=== PATIENT | female | born 1975 | race Caucasian/White ===

== ENCOUNTER → 2022-06-05 14:07 | Outpatient (BNVA) | payer MEDICAID, SELFPAY | PROVIDERS: Family Provider Family Medicine; Visit Provider Podiatrist Foot & Ankle Surgery | DX: M20.11 Hallux valgus (acquired), right foot (principal); M20.41 Other hammer toe(s) (acquired), right foot | CPT/HCPCS: 73630; 99203 ==

== ENCOUNTER 2023-02-08 05:40 | Day surgery (SDC) | payer MEDICAID, SELFPAY ==
[2023-02-08] VITALS (10 sets, daily range): BP systolic 137–156; BP diastolic 87–106; PULSE 79–92; RESP 13–19; TEMP 36.2–36.7; O2SAT 95–100
--- NOTE | 2023-02-08 | XR_ITS ---
WS: [id number] Right foot, C-arm fluoroscopy views, 02/08/2023 Clinical Data: buniectomy lapidus Comparison: None. Findings: Dr. Montemayor performed a fusion of the base of the right first metatarsal and first cuneiform with 2 sepa rate plates and multiple screws. XR/XR foot RT 2V [id number] Impression: Arthrodesis of right first metatarsal and first cuneiform.
[2023-02-08] MEDS: gabapentin 300 mg Capsule PO (06:31)
--- NOTE | 2023-02-08 06:44 | P.HPUD_ITS ---
Surgery/Procedure H&P Update DATE OF PROCEDURE: February 08, 2023 DATE H&P PERFORMED: 01/17/23 CHANGES TO PREVIOUS DOCUMENTATION: No changes PREOP DIAGNOSIS: Right foot hallux valgus PLANNED PROCEDURE: Operation Date: 02/08/23 07:00 Proposed Procedures p Bunionectomy Lapidus(Right) - Francisco Montemayor DPM s Right foot bunionectomy CPT 36446, right proximal phalanx osteotomy CPT 77620- 59, ?M21.611(Right) - Francisco Montemayor DPM
--- NOTE | 2023-02-08 06:48 | P.ANESASSM_ITS ---
Pre-Anesthetic Assessment Height/Weight: Height 1.65 m Weight 59.874 kg Temp Pulse Resp BP Pulse Ox O2 Del Method 97.8 F 86 16 139/106 100 Room Air 02/08/23 06:04 02/08/23 06:04 02/08/23 06:04 02/08/23 06:04 02/08/23 06:04 02/08/23 06:04 Preop Diagnosis: Right foot hallux valgus Operation Date: 02/08/23 07:00 Proposed Procedures p Bunionectomy Lapidus(Right) - Francisco Montemayor DPM s Right foot bunionectomy CPT 27748, right proximal phalanx osteotomy CPT 28359- 59, ?M21.611(Right) - Francisco Montemayor DPM Familial anesthetic complications: None Was Beta Ed taken within 24 hours: N/A Was Clonidine taken within 24 hours: N/A Last intake: Intake Last Liquid Date 02/07/23 Last Liquid Time 20:00 Last Solid Date 02/07/23 Last Solid Time 20:00 Social Tobacco and No alcohol Exam alert, oriented x 3, clear to auscultation bilaterally and regular rate & rhythm Airway Mallampati: Class II Dentition: chipped History/ROS No significant complaints Anesthetic Plan ASA status: 2 Anesthesia: General Risk of > 500 ml blood loss (7ml/kg in children): No Medications/Allergies Home Medications Medication Instructions Recorded Confirmed Last Taken Type No Known Home Medications 06/05/22 02/07/23 Unknown History hydrocodone 5 mg-acetaminophen 325 1 tab PO Q6H PRN pain #28 tabs 02/08/23 Unknown Rx mg tablet Allergies Allergy/AdvReac Type Severity Reaction Status Date / Time No Known Allergies Allergy Verified 02/07/23 14:02 PFSH Anesthesia Family History Son Cancer thyroid Grandmother Cancer breast Social History Smoking and tobacco status: current every day smoker cigarettes Packs smoked per day: 1 Years cigarettes smoked: 20 Female Reproductive History Date of last menstrual period: 02/01/23 Data Anesthesia Cardiac Studies: No Data to Display
--- NOTE | 2023-02-08 06:49 | P.ANESASSM_ITS ---
Pre-Anesthetic Assessment Height/Weight: Height 1.65 m Weight 59.874 kg Temp Pulse Resp BP Pulse Ox O2 Del Method 97.8 F 86 16 139/106 100 Room Air 02/08/23 06:04 02/08/23 06:04 02/08/23 06:04 02/08/23 06:04 02/08/23 06:04 02/08/23 06:04 Preop Diagnosis: Right foot hallux valgus Operation Date: 02/08/23 07:00 Proposed Procedures p Bunionectomy Lapidus(Right) - Francisco Montemayor DPM s Right foot bunionectomy CPT 15821, right proximal phalanx osteotomy CPT 33594- 58, ?M21.611(Right) - Francisco Montemayor DPM Familial anesthetic complications: none Was Beta Ed taken within 24 hours: N/A Was Clonidine taken within 24 hours: N/A Last intake: Intake Last Liquid Date 02/07/23 Last Liquid Time 20:00 Last Solid Date 02/07/23 Last Solid Time 20:00 Social Tobacco and No alcohol Exam alert, oriented x 3, clear to auscultation bilaterally and regular rate & rhythm Airway Mallampati: Class II Dentition: chipped History/ROS No significant complaints Anesthetic Plan ASA status: 2 Anesthesia: General Risk of > 500 ml blood loss (7ml/kg in children): No Medications/Allergies Home Medications Medication Instructions Recorded Confirmed Last Taken Type No Known Home Medications 06/05/22 02/07/23 Unknown History hydrocodone 5 mg-acetaminophen 325 1 tab PO Q6H PRN pain #28 tabs 02/08/23 Unknown Rx mg tablet Allergies Allergy/AdvReac Type Severity Reaction Status Date / Time No Known Allergies Allergy Verified 02/07/23 14:02 PFSH Anesthesia Family History Son Cancer thyroid Grandmother Cancer breast Social History Smoking and tobacco status: current every day smoker cigarettes Packs smoked per day: 1 Years cigarettes smoked: 20 Female Reproductive History Date of last menstrual period: 02/01/23 Data Anesthesia Cardiac Studies: No Data to Display
[2023-02-08] MEDS: sodium chloride 0.9% 1,000 ML 30 ML IV (06:56)
[2023-02-08] MEDS: acetaminophen 1,000 MG/100 ML PIGGYBACK 400 MG IV (06:57)
[2023-02-08] MEDS: ceFAZolin 2,000 MG in sodium chloride 0.9% (plus) 50 ML 100 MG IV (07:04)
[2023-02-08 07:05] LABS: OR HCG Qualitative Urine Negative (Negative)
--- NOTE | 2023-02-08 08:52 | SUR.PHASEI ---
oral airway removed. spo2 97% on RA. When patient woke up she caught her iv on her blankets and iv was dc'd. cath intact.
--- NOTE | 2023-02-08 08:58 | PM.OP ---
Operative Report Date of procedure: February 08, 2023 Pre-op diagnosis: Preop Diagnosis Right foot hallux valgus Post-op diagnosis: Same Post-op findings: Hallux valgus deformity corrected at the first tarsometatarsal joint with Lapiplasty first tarsometatarsal joint arthrodesis CPT 16914 Procedure done: Right foot Lapidus bunionectomy Surgeon: Maricel East.P.MRita Estimated blood loss: Less than 20 cc 64 minutes Complications: None Findings: See above Procedure: Patient is a 47-year-old female that has a history of right foot painful bunion. The patient has had the aforementioned chief complaint for some time. Conservative treatment measures have been attempted and the patient has opted for surgical intervention at this time. A lengthy discussion regarding the procedure, including risks and complications has been had with the patient and is noted in the recent clinic note. Written and verbal consent have been obtained. All patient questions have been answered to the patient?s satisfaction. No written or verbal guarantees have been given or implied. The patient has been NPO since midnight. The history has been reviewed and the history and physical is current. The signed consent was confirmed and placed in the patient chart. Patient imaging has been reviewed and is consistent with the diagnosis. Under mild sedation, the patient was brought into the operating room and left on the gurney in the supine position. IV antibiotics were given by the anesthesia team as preoperative surgical prophylaxis. General sedation was then performed by the anesthesiateam. A pneumatic tourniquet was then placed about the right ankle. The operative extremity was then prepped and draped in the usual fashion. The extremity was then elevated and exsanguinated before the tourniquet was inflated to 250 mmHg. After inflation, the following procedure was then performed. Attention was directed to the dorsal aspect of the right foot where a 6 cm incision was made over the first tarsometatarsal joint just medial to the extensor hallucis longus tendon. Dissection was carried down through subcutaneous and superficial fascia to the level of the first tarsometatarsal joint articulation. Any bleeders were cauterized as necessary during dissection. Vital adjacent structures such as neurovasculature and extensor hallucis longus tendon were retracted out of the operative field. #15 blade was used to incise through the joint capsule. Next a rongeur was inserted into the first tarsometatarsal joint to free up the soft tissues of the joint in preparation for the sagittal bone saw. Sagittal bone saw was used to make a single pass through the first tarsometatarsal joint. Next, attention was directed to the lateral aspect of the first tarsometatarsal joint where a percutaneous stab incision was made and a lateral release of the lateral first metatarsophalangeal joint capsule was performed in standard fashion. The first metatarsophalangeal joint was then noted to be more mobile to aid with reduction of the bunion deformity. Next, a fulcrum and cut guide were inserted at the first tarsometatarsal joint articulation per the manufacture protocol a joystick pin was inserted into the base of the first metatarsal. Good frontal plane rotation was noted clinically. The 1?2 intermetatarsal reduction clamp was then inserted per manufacture protocol with a small stab incision to the lateral aspect of the second metatarsal. The intermetatarsal angle was reduced to appropriate anatomic position and the first metatarsal was rotated in the frontal plane until the sesamoids were appropriately aligned. Next, a sagittal bone saw was used to make the osteotomy through the first tarsometatarsal joint articulation removing the articular cartilage from the base of the first metatarsal as well as the articular surface of the medial cuneiform. These were then grasped with a rongeur and passed from the operative field. Site was then irrigated with sterile saline before a fenestration drill bit was used to fenestrate the arthrodesis site of the first metatarsal and medial cuneiform. The first tarsometatarsal joint was then compressed using the compression jig. Good alignment was noted clinically as well as on C-arm imaging. Next, standard 4-hole straight plates were applied to the medial aspect of the first tarsometatarsal joint articulation and the dorsal aspect of the joint 90 degrees from the medial plate. The screws were inserted in standard fashion and good positioning of the plate and screws were noted clinically as well as on C-arm imaging. The tourniquet was let down and good hyperemic response was noted to all digits of the right foot. Incision site was closed with 3-0 Vicryl for deep tissue 4-0 Vicryl for subcuticular closure and 4-0 nylon for skin closure. The incision sites were dressed with Xeroform, 4 x 4 gauze, Kerlix. The incision sites were further anesthetized using Exparel. A well-padded below the knee posterior splint was then applied to the right lower extremity The patient tolerated the procedure and anesthesia well and without complication. The patient was transported from the operating room to the recovery room with vital signs stable and vascular status intact to all digits of the right foot. The patient was given both written and verbal instructions to remain nonweightbearing to the operative extremity, to keep dressings/splint clean, dry and intact and to take pain medication as directed. The patient will follow-up in the outpatient setting at their scheduled appointment. The patient was discharged with my personal number and was instructed to call if any questions or issues should arise. They were discharged home once anesthesia criteria was met.
[2023-02-08] MEDS: HYDROcodone-acetaminophen 5-325 mg Tablet 1 TAB PO (09:32)
--- NOTE | 2023-02-08 12:50 | ANE.PACU2 ---
Inpatient post-anesthesia follow up: Airway intact: Yes Vital signs: Temperature 98.0 F Pulse Rate 91 Respiratory Rate 16 Blood Pressure 146/102 Pulse Oximetry 97 Oxygen Delivery Me thod Room Air Oxygen Flow Rate 6 Fraction of Inspir ed Oxygen Hydration adequate: Yes Nausea and vomiting: Yes Pain level: 1 Mental status: Baseline
== END 2023-02-08 09:40 | disposition home or self-care (01) ==
PROVIDERS: Anesthesiology; Visit Provider Podiatrist Foot & Ankle Surgery
PROC: (CPT 28297; principal; 2023-02-08 07:00)
PROC: (CPT 28297; 2023-02-08 07:00)
DX: M21.611 Bunion of right foot (principal); M20.11 Hallux valgus (acquired), right foot; F17.210 Nicotine dependence, cigarettes, uncomplicated
CPT/HCPCS: 28297; 73620; 76000; 81025; 84703; C1713; C9290; J0131; J0690; J1170; J2250; J2405; J2704; J3010; J3490; J7030

== ENCOUNTER → 2023-02-21 14:03 | Outpatient (BNVA) | payer MEDICAID, SELFPAY | PROVIDERS: Visit Provider Podiatrist Foot & Ankle Surgery | DX: Z98.890 Other specified postprocedural states (principal) | CPT/HCPCS: 73630 ==

== ENCOUNTER 2023-02-21 15:57 | Outpatient (CLI) | payer MEDICAID, SELFPAY | END 2023-02-21 15:58 | disposition home or self-care (01) | LOC: SPT 15:57 | PROVIDERS: Visit Provider Podiatrist Foot & Ankle Surgery | DX: Z46.89 Encounter for fitting and adjustment of other specified devices (principal); M79.671 Pain in right foot; Z98.890 Other specified postprocedural states | CPT/HCPCS: 97760; L4361 ==

== ENCOUNTER → 2023-03-14 14:14 | Outpatient (BNVA) | payer MEDICAID, SELFPAY | PROVIDERS: Visit Provider Podiatrist Foot & Ankle Surgery | DX: M79.671 Pain in right foot (principal); Z98.890 Other specified postprocedural states | CPT/HCPCS: 73630 ==

== ENCOUNTER → 2023-04-02 14:50 | Outpatient (BNVA) | payer MEDICAID, SELFPAY | PROVIDERS: Visit Provider Podiatrist Foot & Ankle Surgery | DX: M79.671 Pain in right foot (principal); Z98.890 Other specified postprocedural states | CPT/HCPCS: 73630 ==